=== PATIENT | male | born 1960 | race African-American/Black ===

== ENCOUNTER 2018-06-07 17:51 | Inpatient (IN) | payer MEDICAID ==
[2018-06-07 19:12] LABS: Mean Corpuscular HGB Conc 31 % (32-34); Mean Corpuscular Volume 71 fl (84-94); Platelet Count 352 K/mm3 (140-440); Red Blood Count 5.17 M/mm3 (3.65-5.03); Red Cell Distribution Width 18.1 % (13.2-15.2)
[2018-06-07 19:23] LABS: INR 0.93 (0.87-1.13)
[2018-06-07 19:24] LABS: Partial Thromboplastin Time 33.7 Sec. (24.2-36.6)
[2018-06-07 19:30] LABS: Hematocrit 36.7 % (35.5-45.6); Hemoglobin 11.2 gm/dl (11.8-15.2)
[2018-06-07 19:31] LABS: Alanine Aminotransferase 18 units/L (7-56); Albumin 4.1 g/dL (3.9-5); BUN/Creatinine Ratio 11; Blood Urea Nitrogen 10 mg/dL (9-20); Calcium 9.3 mg/dL (8.4-10.2); Hemolysis Index 7
[2018-06-07 19:36] LABS: Amphetamine Screen,Urine PRESUMPTIVE NEGATIVE; Benzodiazepines Screen,Urine PRESUMPTIVE NEGATIVE; Cannabinoid Screen,Urine PRESUMPTIVE NEGATIVE; Cocaine Screen,Urine PRESUMPTIVE NEGATIVE; Methadone Screen,Urine PRESUMPTIVE NEGATIVE; Opiate Screen,Urine PRESUMPTIVE NEGATIVE
[2018-06-07 19:43] LABS: Bacteria,Urine 1+ /HPF (Negative); Bilirubin,Urine NEG (Negative); Blood,Urine NEG (Negative); Color,Urine Straw (Yellow); Protein,Urine <15 mg/dL mg/dL (Negative); Urobilinogen,Urine < 2.0 mg/dL (<2.0); WBC,Urine < 1.0 /HPF (0.0-6.0)
[2018-06-07] MEDS ORDERED: NACL 0.9% 1000 ML 1,000 ML IV ONE (20:37)
[2018-06-07] MEDS ORDERED: ATROPINE IV ONE (20:37)
[2018-06-07] MEDS ORDERED: CALCIUM GLUCONATE 1,000 MG in NACL 0.9% 100 ML IV ONE (20:37)
--- NOTE | 2018-06-07 20:39 | Emergency Department Report ---
ED General Adult HPI - General Chief complaint: Medical Clearance Stated complaint: ALCOHOL DETOX Time Seen by Provider: 06/07/18 20:27 Source: EMS (ems notes not available at time of chart dictation), RN notes reviewed Mode of arrival: Stretcher Limitations: Altered Mental Status, Physical Limitation - History of Present Illness Initial comments: This is a 57-year-old gentleman. The patient is not known to this provider previously. His past medical history includes type 2 diabetes, depression, left-sided hemiplegia, dysphagia, BPH, chronic pain, constipation, history of falling, high cholesterol, osteoarthritis, gastroesophageal reflux disease. The patient also has a distant history of cervical cord compression, status post cervical decompression, laminectomy and fusion. The patient is reportedly sensitive to this emergency room by his prison for medical clearance after reported alcohol consumption. The patient has no complaints at this time. He is requesting to eat. He makes no complaint of headache, neck pain, test pain, abdominal pain, cough, shortness of breath. His prison facility primary care physician is Dr. Angel Beal. There is no documented history of trauma this far. Apparently, patient and his group her out on a day trip, and he is reported to have consumed wine. Initially, in the emergency room, patient found to be quite intoxicated, bradycardic, with a heart rate of 48 bpm, initially hypotensive, with a blood pressure in the 90s. Patient medicated empirically with atropine, fluids, sodiu m bicarbonate and calcium gluconate. These aforementioned interventions improve the patient's bradycardia and hypotension. Screening laboratory studies were unremarkable otherwise, noncontrast CT scan of brain was negative, however, an x-ray of the chest suggested a right lower lobe consolidation. Given the aforementioned, concern about aspiration pneumonia, pneumonitis. Given that patient has had documented bradycardia, hypotension, now resolved, with his presumed right lower lobe pneumonia, aspiration, is my opinion that the patient is not medically suitable for discharge at this point i n time to go back to the prison. I believe he will benefit from observation. Nursing team attempted to call the reported prison 6 times to clarify when patient's last known metoprolol ingestion took place, however, nobody answered the phone when we called. Given that hypotension has resolved, given at serum toxicology is otherwise unremarkable with the exception of elevated blood alcohol level, and given that bradycardia has also resolved, it is my opinion that the [facility] does not need to be emergently consulted by the emergency room. The case was presented to the Hospital physician, Dr. Weir, who has accepted the patient to the medical service. The patient is intoxicated, and therefore has difficulty describing exacerbating or relieving factors, aggravation, or qualitative nature of his symptoms. -: unknown Radiation: other Quality: other Consistency: other Improves with: other Worsens with: other - Related Data Allergies Allergy/AdvReac Type Severity Reaction Status Date / Time No Known Allergies Allergy Unverified 06/07/18 18:23 ED Review of Systems ROS: Stated complaint: ALCOHOL DETOX Other details as noted in HPI Comment: Unobtainable due to pts medical conditions Constitutional: malaise, weakness Neurological: weakness (chronic weakness) ED Past Medical Hx - Past Medical History Previous Medical History?: Yes Hx Hypertension: Yes Hx CVA: Yes Hx Psychiatric Treatment: Yes (depression, Anxiety, and ETOH abuse) Hx Dementia: Yes - Surgical History Past Surgical History?: Yes Additional Surgical History: Cervical fusion. - Social History Smoking Status: Unknown if ever smoked Substance Use Type: Alcohol ED Physical Exam - General Limitations: Physical Limitation General appearance: alert, appears intoxicated - Head Head exam: Present: atraumatic, normocephalic - Eye Eye exam: Present: normal appearance, EOMI - ENT ENT exam: Present: normal exam, normal orophraynx, mucous membranes moist - Neck Neck exam: Present: normal inspection, full ROM - Respiratory Respiratory exam: Present: decreased breath sounds. Absent: wheezes, rales, rh onchi - Cardiovascular Cardiovascular Exam: Present: normal rhythm, bradycardia, normal heart sounds. Absent: tachycardia, irregular rhythm, systolic murmur, diastolic murmur, rubs, gallop - GI/Abdominal GI/Abdominal exam: Present: soft. Absent: distended, tenderness, guarding, rebound, rigid, pulsatile mass - Rectal Rectal exam: Present: deferred - Extremities Exam Extremities exam: Present: normal inspection, full ROM, other (2+ pulses noted in the bilateral upper, lower extremities. Compartments soft. No long bony tenderness. The pelvis is stable.). Absent: pedal edema, joint swelling, calf tenderness - Back Exam Back exam: Present: normal inspection, full ROM. Absent: tenderness, CVA t enderness (R), paraspinal tenderness - Neurological Exam Neurological exam: Present: alert (alert to name. Follows commands. Patient is intoxicated), other (there is no facial droop. The tongue is midline. Moving 4 extremities spontaneously.) - Psychiatric Psychiatric exam: Present: anxious. Absent: homicidal ideation, suicidal ideation - Skin Skin exam: Present: warm, dry, intact, normal color. Absent: rash ED Course Vital Signs 06/07/18 06/07/18 06/07/18 18:11 18:49 19:00 Temperature 97.8 F Pulse Rate 57 L 48 L 49 L Respiratory 14 13 13 Rate Blood Pressure 112/64 117/62 Blood Pressure [Left] O2 Sat by Pulse 100 99 100 Oximetry 06/07/18 06/07/18 06/07/18 20:15 20:44 21:38 Temperature Pulse Rate 49 L 52 L 74 Respiratory 13 16 13 Rate Blood Pressure Blood Pressure 114/54 104/58 120/70 [Left] O2 Sat by Pulse 100 99 99 Oximetry 06/07/18 06/07/18 21:44 22:36 Temperature Pulse Rate 75 70 Respiratory 14 14 Rate Blood Pressure Blood Pressure 110/66 107/60 [Left] O2 Sat by Pulse 98 98 Oximetry ED Medical Decision Making - Lab Data Result diagrams: 06/07/18 18:48 06/07/18 18:48 Vital Signs 06/07/18 06/07/18 06/07/18 18:11 18:49 19:00 Temperature 97.8 F Pulse Rate 57 L 48 L 49 L Respiratory 14 13 13 Rate Blood Pressure 112/64 117/62 Blood Pressure [Left] O2 Sat by Pulse 100 99 100 Oximetry 06/07/18 06/07/18 06/07/18 20:15 20:44 21:38 Temperature Pulse Rate 49 L 52 L 74 Respiratory 13 16 13 Rate Blood Pressure Blood Pressure 114/54 104/58 120/70 [Left] O2 Sat by Pulse 100 99 99 Oximetry 06/07/18 06/07/18 21:44 22:36 Temperature Pulse Rate 75 70 Respiratory 14 14 Rate Blood Pressure Blood Pressure 110/66 107/60 [Left] O2 Sat by Pulse 98 98 Oximetry Lab Results 06/07/18 06/07/18 06/07/18 Range/Units 18:48 18:48 18:48 WBC 7.5 (4.5-11.0) K/mm3 RBC 5.17 H (3.65-5.03) M/mm3 Hgb 11.2 L (11.8-15.2) gm/dl Hct 36.7 (35.5-45.6) % MCV 71 L (84-94) fl MCH 22 L (28-32) pg MCHC 31 L (32-34) % RDW 18.1 H (13.2-15.2) % Plt Count 352 (140-440) K/mm3 PT 13.0 (12.2-14.9) Sec. INR 0.93 (0.87-1.13) APTT 33.7 (24.2-36.6) Sec. Sodium 137 (137-145) mmol/L Potassium 4.3 (3.6-5.0) mmol/L Chloride 99.0 (98-107) mmol/L Carbon Dioxide 24 (22-30) mmol/L Anion Gap 18 mmol/L BUN 10 (9-20) mg/dL Creatinine 0.9 (0.8-1.5) mg/dL Estimated GFR > 60 ml/min BUN/Creatinine Ratio 11 % Glucose 165 H (75-100) mg/dL Calcium 9.3 (8.4-10.2) mg/dL Magnesium 2.10 (1.7-2.3) mg/dL Total Bilirubin 0.30 (0.1-1.2) mg/dL AST 22 (5-40) units/L ALT 18 (7-56) units/L Alkaline Phosphatase 104 (35-129) units/L Total Creatine Kinase 205 H (55-170) units/L Total Protein 7.7 (6.3-8.2) g/dL Albumin 4.1 (3.9-5) g/dL Albumin/Globulin Ratio 1.1 % Urine Color (Yellow) Urine Turbidity (Clear) Urine pH (5.0-7.0) Ur Specific [place] (1.003-1.030) Urine Protein (Negative) mg/dL Urine Glucose (UA) (Negative) mg/dL Urine Ketones (Negative) mg/dL Urine Blood (Negative) Urine Nitrite (Negative) Urine Bilirubin (Negative) Urine Urobilinogen (<2.0) mg/dL Ur Leukocyte Esterase (Negative) Urine WBC (Auto) (0.0-6.0) /HPF Urine RBC (Auto) (0.0-6.0) /HPF Urine Bacteria (Auto) (Negative) /HPF Salicylates (2.8-20.0) mg/dL Urine Opiates Screen Urine Methadone Screen Acetaminophen (10.0-30.0) ug/mL Ur Barbiturates Screen Ur Phencyclidine Scrn Ur Amphetamines Screen U Benzodiazepines Scrn Urine Cocaine Screen U Marijuana (THC) Screen Drugs of Abuse Note Plasma/Serum Alcohol (0-0.07) % 06/07/18 06/07/18 06/07/18 Range/Units 18:48 18:48 18:48 WBC (4.5-11.0) K/mm3 RBC (3.65-5.03) M/mm3 Hgb (11.8-15.2) gm/dl Hct (35.5-45.6) % MCV (84-94) fl MCH (28-32) pg MCHC (32-34) % RDW (13.2-15.2) % Plt Count (140-440) K/mm3 PT (12.2-14.9) Sec. INR (0.87-1.13) APTT (24.2-36.6) Sec. Sodium (137-145) mmol/L Potassium (3.6-5.0) mmol/L Chloride (98-107) mmol/L Carbon Dioxide (22-30) mmol/L Anion Gap mmol/L BUN (9-20) mg/dL Creatinine (0.8-1.5) mg/dL Estimated GFR ml/min BUN/Creatinine Ratio % Glucose (75-100) mg/dL Calcium (8.4-10.2) mg/dL Magnesium (1.7-2.3) mg/dL Total Bilirubin (0.1-1.2) mg/dL AST (5-40) units/L ALT (7-56) units/L Alkaline Phosphatase (35-129) units/L Total Creatine Kinase (55-170) units/L Total Protein (6.3-8.2) g/dL Albumin (3.9-5) g/dL Albumin/Globulin Ratio % Urine Color (Yellow) Urine Turbidity (Clear) Urine pH (5.0-7.0) Ur Specific [place] (1.003-1.030) Urine Protein (Negative) mg/dL Urine Glucose (UA) (Negative) mg/dL Urine Ketones (Negative) mg/dL Urine Blood (Negative) Urine Nitrite (Negative) Urine Bilirubin (Negative) Urine Urobilinogen (<2.0) mg/dL Ur Leukocyte Esterase (Negative) Urine WBC (Auto) (0.0-6.0) /HPF Urine RBC (Auto) (0.0-6.0) /HPF Urine Bacteria (Auto) (Negative) /HPF Salicylates < 0.3 L (2.8-20.0) mg/dL Urine Opiates Screen Urine Methadone Screen Acetaminophen < 5.0 L (10.0-30.0) ug/mL Ur Barbiturates Screen Ur Phencyclidine Scrn Ur Amphetamines Screen U Benzodiazepines Scrn Urine Cocaine Screen U Marijuana (THC) Screen Drugs of Abuse Note Plasma/Serum Alcohol 0.24 H (0-0.07) % 06/07/18 06/07/18 Range/Units 19:04 19:04 WBC (4.5-11.0) K/mm3 RBC (3.65-5.03) M/mm3 Hgb (11.8-15.2) gm/dl Hct (35.5-45.6) % MCV (84-94) fl MCH (28-32) pg MCHC (32-34) % RDW (13.2-15.2) % Plt Count (140-440) K/mm3 PT (12.2-14.9) Sec. INR (0.87-1.13) APTT (24.2-36.6) Sec. Sodium (137-145) mmol/L Potassium (3.6-5.0) mmol/L Chloride (98-107) mmol/L Carbon Dioxide (22-30) mmol/L Anion Gap mmol/L BUN (9-20) mg/dL Creatinine (0.8-1.5) mg/dL Estimated GFR ml/min BUN/Creatinine Ratio % Glucose (75-100) mg/dL Calcium (8.4-10.2) mg/dL Magnesium (1.7-2.3) mg/dL Total Bilirubin (0.1-1.2) mg/dL AST (5-40) units/L ALT (7-56) units/L Alkaline Phosphatase (35-129) units/L Total Creatine Kinase (55-170) units/L Total Protein (6.3-8.2) g/dL Albumin (3.9-5) g/dL Albumin/Globulin Ratio % Urine Color Straw (Yellow) Urine Turbidity Clear (Clear) Urine pH 6.0 (5.0-7.0) Ur Specific [place] 1.003 (1.003-1.030) Urine Protein <15 mg/dl (Negative) mg/dL Urine Glucose (UA) Neg (Negative) mg/dL Urine Ketones Neg (Negative) mg/dL Urine Blood Neg (Negative) Urine Nitrite Neg (Negative) Urine Bilirubin Neg (Negative) Urine Urobilinogen < 2.0 (<2.0) mg/dL Ur Leukocyte Esterase Neg (Negative) Urine WBC (Auto) < 1.0 (0.0-6.0) /HPF Urine RBC (Auto) 1.0 (0.0-6.0) /HPF Urine Bacteria (Auto) 1+ (Negative) /HPF Salicylates (2.8-20.0) mg/dL Urine Opiates Screen Presumptive negative Urine Methadone Screen Presumptive negative Acetaminophen (10.0-30.0) ug/mL Ur Barbiturates Screen Presumptive negative Ur Phencyclidine Scrn Presumptive negative Ur Amphetamines Screen Presumptive negative U Benzodiazepines Scrn Presumptive negative Urine Cocaine Screen Presumptive negative U Marijuana (THC) Screen Presumptive negative Drugs of Abuse Note Disclamer Plasma/Serum Alcohol (0-0.07) % - EKG Data -: EKG Interpreted by Or Rate: bradycardia - EKG Data When compared to previous EKG there are: previous EKG unavailable 06/07/18 23:14 EKG shows bradycardia, 48 bpm, borderline left axis deviation, premature ventricular contraction, low voltage, right bundle branch block, T-wave inversions in inferior leads, abnormal EKG, not having chest pain, this is not consistent with ST elevation myocardial infarction. There is currently no prior EKG available for comparison - Radiology Data Radiology results: report reviewed, image reviewed Print Report Referring Physician: CHERI SEARS Patient Name: RYAN PHILLIPS Date of : 1960 Sex: Male Report Date: 2018-06-07 Report Status: Finalized Findings [facility] [address] [place] [address] XRay Report Signed Patient: RYAN PHILLIPS MR#: [id number] : 1960 Acct:[id number] Age/Sex: 57 / M ADM Date: 06/07/18 Loc: ED Attending Dr: Ordering Physician: CHERI SEARS MD Date of Service: 06/07/18 Procedure(s): XR chest 1V ap Accession Number(s): [id number] cc: CHERI SEARS MD Fluoro Time In Minutes: PROCEDURE: XR CHEST 1V AP TECHNIQUE: Frontal portable view of the chest HISTORY: weak hypotensive bradycardic COMPARISONS: None FINDINGS: There is elevation the right hemidiaphragm. There is pulmonary consolidation in the right lung base. Atelectasis versus infiltrate. There is no evidence of pneumothorax and no definite evidence of pleural fluid collection. The cardiac silhouette is enlarged. The thoracic aorta is unremarkable. The bony structures are notable for degenerative change of the shoulder joints bilaterally and retained hardware in the cervical spine. IMPRESSION: 1. Elevation of the right hemidiaphragm with the appearance of atelectasis or infiltrate right lung base. 2. Enlarged cardiac silhouette. 3. Degenerative change shoulder joints bilaterally and retained hardware cervical spine. If further imaging is required, CT chest may be helpful. This document is electronically signed by Debby Renteria MD., June 07 2018 10:26:09 PM ET Transcribed By: ED Dictated By: DEBBY RENTERIA MD Electronically Authenticated By: DEBBY RENTERIA MD Signed Date/Time: 06/07/182226 DD/ 36 TD/TT: 06/07/182123 Critical Care Time: Yes Critical care time in (mins) excluding proc time.: 35 Critical care attestation.: If time is entered above; I have spent that time in minutes in the direct care of this critically ill patient, excluding procedure time. ED Disposition Clinical Impression: Bradycardia, Alcohol intoxication, Aspiration into airway, Debility Disposition: OP ADMIT IP TO THIS HOSP Is pt being admited?: Yes Does the pt Need Aspirin: Yes Condition: Fair Referrals: ANGEL BEAL MD [Primary Care Provider] - 3-5 Days
--- NOTE | 2018-06-07 21:23 | Cat Scan Report ---
PROCEDURE: CT HEAD/BRAIN WO CON HISTORY: etoh weak bradycardic FINDINGS: Unenhanced CT of the brain was performed and demonstrates no acute intracranial hemorrhage, extra-axial fluid collection, midline shift or mass effect. The ventricles and basal cisterns are no t effaced. The mastoid air cells and middle ears appear clear. There is complete opacification of the right maxi llary sinus. There is partial opacification of the left maxillary sinus. There are a left maxillary p olyp versus mucous retention cyst. There is an air-fluid level in the right frontal sinus consistent with sinusitis. There is partial opacification of the ethmoid air cells and sphenoid sinuses. IMPRESSION: No acute intracranial hemorrhage Sinus disease including air-fluid level in right frontal sinus consistent with acute sinusitis This document is electronically signed by Saul Maciel MD., June 07 2018 09:22:19 PM ET
[2018-06-07] MEDS: D5/0.45NS 1,000 ML IV SCH (21:45)
--- NOTE | 2018-06-07 22:27 | XRay Report ---
PROCEDURE: XR CHEST 1V AP TECHNIQUE: Frontal portable view of the chest HISTORY: weak hypotensive bradycardic COMPARISONS: None FINDINGS: There is elevation the right hemidiaphragm. There is pulmonary consolidation in the right lung base. Atelectasis versus infiltrate. There is no evidence of pneumothorax and no definite evidence of pleural fluid collection. The cardiac silhouette is enlarged. The thoracic aorta is unremarkable. The bony structures are notable for degenerative change of the shoulder joints bilaterally and retain ed hardware in the cervical spine. IMPRESSION: 1. Elevation of the right hemidiaphragm with the appearance of atelectasis or infiltrate right lung b ase. 2. Enlarged cardiac silhouette. 3. Degenerative change shoulder joints bilaterally and retained hardware cervical spine. If further imaging is required, CT chest may be helpful. This document is electronically signed by Debby Renteria MD., June 07 2018 10:26:09 PM ET
[2018-06-07] MEDS ORDERED: LEVAQUIN 750MG/150ML 750 MG/150 ML BAG IV ONE (22:58)
[2018-06-07] MEDS ORDERED: BABY ASPIRIN PO ONE (23:15)
[2018-06-07] MEDS ORDERED: NORCO 5/325 PO PRN (23:36)
[2018-06-07] MEDS ORDERED: ZOFRAN IV PRN (23:36)
[2018-06-07] MEDS ORDERED: SODIUM CHLORIDE FLUSH SYRINGE 10 ML IV PRN (23:36)
[2018-06-07] MEDS ORDERED: TYLENOL PO PRN (23:36)
[2018-06-07] MEDS ORDERED: D50W (25GM) Syringe IV PRN (23:38)
[2018-06-08] MEDS ORDERED: BABY ASPIRIN ONE (01:17)
--- NOTE | 2018-06-08 01:24 | History and Physical Report ---
History of Present Illness Date of examination: 06/07/18 Date of admission: 06/07/18 23:36 Chief complaint: Medical clearance per report History of present illness: Patient is a 57 year old male with history of diabetes mellitus type 2 and stroke, a resident of assisted facility who was brought to the ED for medical clearance after he was found to have consumed alcohol. Patient was a poor historian and he stated that he did not know why he was brought to the ER. However he stated that they went to the mall today and he bought them to smoke but is of wine which she consumed. Nevertheless, he denies history of alcohol abuse and he stated that he had not drank alcohol for a while until today. He admits to chills without fever. He denies chest pain, shortness of breath, palpitation, diaphoresis, leg swelling, cough, orthopnea, PND, sore throat, runn y nose or congestion. No headaches, nausea, vomiting, lightheadedness, falls, syncope or loss of consciousness. No abdominal pain, constipation, diarrhea, dysuria or frequency. In the ED, his heart rate was noted to be low at 48 and his systolic blood pressure was in the 90s. Past History Past Medical History: diabetes, hypertension, stroke, other (cervical cord compression anxiety and depression) Past Surgical History: Other (cervical decompression, laminectomy and fusion.) Social history: other (he denies alcohol abuse, but drinks alcohol occasionally. He denies tobacco or illicit drug use) Family history: other (reviewed and noncontributory) Medications and Allergies Allergies Allergy/AdvReac Type Severity Reaction Status Date / Time No Known Allergies Allergy Unverified 06/07/18 18:23 Active Meds: Active Medications Acetaminophen (Tylenol) 650 mg PO Q4H PRN PRN Reason: Pain MILD(1-3)/Fever >100.5/INIGUEZ Acetaminophen/Hydrocodone Bitart ([place] 5/325) 1 each PO Q6H PRN PRN Reason: Pain, Moderate (4-6) Dextrose (D50w (25gm) Syringe) 50 ml IV PRN PRN PRN Reason: Hypoglycemia Enoxaparin Sodium (Lovenox) 40 mg SUB-Q QDAY AUREA Dextrose/Sodium Chloride (D5/0.45ns) 1,000 mls @ 0 mls/hr IV DIRECT AUREA Last Admin: 06/07/18 21:45 Dose: 999 mls/hr Documented by: Levofloxacin/Dextrose (Levaquin 750mg/150ml) 750 mg in 150 mls @ 100 mls/hr IV Q24HR AUREA; Protocol Insulin Glargine (Lantus) 10 units SUB-Q QHS AUREA Insulin Human Lispro (Humalog) 0 unit SUB-Q ACHS AUREA; Protocol Ondansetron HCl (Zofran) 4 mg IV Q8H PRN PRN Reason: Nausea And Vomiting Sodium Chloride (Sodium Chloride Flush Syringe 10 Ml) 10 ml IV PRN PRN PRN Reason: LINE FLUSH Sodium Chloride (Sodium Chloride Flush Syringe 10 Ml) 10 ml IV BID AUREA Review of Systems All systems: negative (except as documented in the HPI, all other systems were reviewed and negative) Exam - Constitutional Vitals: Temp Pulse Resp BP Pulse Ox 97.8 F 62 13 111/65 99 06/07/18 18:11 06/08/18 00:52 06/08/18 00:52 06/08/18 00:52 06/08/18 00:52 General appearance: Present: no acute distress, obese - EENT Eyes: Present: PERRL, EOM intact ENT: hearing intact, clear oral mucosa - Neck Neck: Present: supple, normal ROM - Respiratory Respiratory effort: normal Respiratory: bilateral: CTA - Cardiovascular Rhythm: regular Heart Sounds: Present: S1 & S2. Absent: rub, click - Extremities Extremities: No edema Peripheral Pulses: within normal limits - Abdominal General gastrointestinal: Present: soft, non-tender, non-distended, normal bowel sounds Male genitourinary: Present: deferred - Integumentary Integumentary: Present: clear, warm, dry - Musculoskeletal Musculoskeletal: left sided weakness - Psychiatric Psychiatric: appropriate mood/affect, intact judgment & insight - Neurologic Neurologic: moves all extremities Results - Labs CBC & Chem 7: 06/07/18 18:48 06/07/18 18:48 Labs: Laboratory Last Values WBC 7.5 K/mm3 (4.5-11.0) 06/07/18 18:48 RBC 5.17 M/mm3 (3.65-5.03) H 06/07/18 18:48 Hgb 11.2 gm/dl (11.8-15.2) L 06/07/18 18:48 Hct 36.7 % (35.5-45.6) 06/07/18 18:48 MCV 71 fl (84-94) L 06/07/18 18:48 MCH 22 pg (28-32) L 06/07/18 18:48 MCHC 31 % (32-34) L 06/07/18 18:48 RDW 18.1 % (13.2-15.2) H 06/07/18 18:48 Plt Count 352 K/mm3 (140-440) 06/07/18 18:48 PT 13.0 Sec. (12.2-14.9) 06/07/18 18:48 INR 0.93 (0.87-1.13) 06/07/18 18:48 APTT 33.7 Sec. (24.2-36.6) 06/07/18 18:48 Sodium 137 mmol/L (137-145) 06/07/18 18:48 Potassium 4.3 mmol/L (3.6-5.0) 06/07/18 18:48 Chloride 99.0 mmol/L (98-107) 06/07/18 18:48 Carbon Dioxide 24 mmol/L (22-30) 06/07/18 18:48 Anion Gap 18 mmol/L 06/07/18 18:48 BUN 10 mg/dL (9-20) 06/07/18 18:48 Creatinine 0.9 mg/dL (0.8-1.5) 06/07/18 18:48 Estimated GFR > 60 ml/min 06/07/18 18:48 BUN/Creatinine Ratio 11 % 06/07/18 18:48 Glucose 165 mg/dL (75-100) H 06/07/18 18:48 Calcium 9.3 mg/dL (8.4-10.2) 06/07/18 18:48 Magnesium 2.10 mg/dL (1.7-2.3) 06/07/18 18:48 Total Bilirubin 0.30 mg/dL (0.1-1.2) 06/07/18 18:48 AST 22 units/L (5-40) 06/07/18 18:48 ALT 18 units/L (7-56) 06/07/18 18:48 Alkaline Phosphatase 104 units/L (35-129) 06/07/18 18:48 Total Creatine Kinase 205 units/L (55-170) H 06/07/18 18:48 Total Protein 7.7 g/dL (6.3-8.2) 06/07/18 18:48 Albumin 4.1 g/dL (3.9-5) 06/07/18 18:48 Albumin/Globulin Ratio 1.1 % 06/07/18 18:48 Urine Color Straw (Yellow) 06/07/18 19:04 Urine Turbidity Clear (Clear) 06/07/18 19:04 Urine pH 6.0 (5.0-7.0) 06/07/18 19:04 Ur Specific [place] 1.003 (1.003-1.030) 06/07/18 19:04 Urine Protein <15 mg/dl mg/dL (Negative) 06/07/18 19:04 Urine Glucose (UA) Neg mg/dL (Negative) 06/07/18 19:04 Urine Ketones Neg mg/dL (Negative) 06/07/18 19:04 Urine Blood Neg (Negative) 06/07/18 19:04 Urine Nitrite Neg (Negative) 06/07/18 19:04 Urine Bilirubin Neg (Negative) 06/07/18 19:04 Urine Urobilinogen < 2.0 mg/dL (<2.0) 06/07/18 19:04 Ur Leukocyte Esterase Neg (Negative) 06/07/18 19:04 Urine WBC (Auto) < 1.0 /HPF (0.0-6.0) 06/07/18 19:04 Urine RBC (Auto) 1.0 /HPF (0.0-6.0) 06/07/18 19:04 Urine Bacteria (Auto) 1+ /HPF (Negative) 06/07/18 19:04 Salicylates < 0.3 mg/dL (2.8-20.0) L 06/07/18 18:48 Urine Opiates Screen Presumptive negative 06/07/18 19:04 Urine Methadone Screen Presumptive negative 06/07/18 19:04 Acetaminophen < 5.0 ug/mL (10.0-30.0) L 06/07/18 18:48 Ur Barbiturates Screen Presumptive negative 06/07/18 19:04 Ur Phencyclidine Scrn Presumptive negative 06/07/18 19:04 Ur Amphetamines Screen Presumptive negative 06/07/18 19:04 U Benzodiazepines Scrn Presumptive negative 06/07/18 19:04 Urine Cocaine Screen Presumptive negative 06/07/18 19:04 U Marijuana (THC) Screen Presumptive negative 06/07/18 19:04 Drugs of Abuse Note Disclamer 06/07/18 19:04 Plasma/Serum Alcohol 0.24 % (0-0.07) H 06/07/18 18:48 Assessment and Plan Assessment and plan: Possible pneumonia -Chest x-ray reported as possible infiltrate versus atelectasis -On IV antibiotic with levofloxacin -Blood cultures pending Sinus bradycardia -HR currently improved, will monitor Hypotension -BP currently improved, will monitor DM2 with hyperglycemia -On Lantus and SSI Alcohol intoxication -Monitor clinically Anxiety and depression -Resume home medications when available History of stroke, stable Disposition: For possible discharge in 2-3 days Time spent: 38 minutes
[2018-06-08] MEDS ORDERED: LEVAQUIN 750MG/150ML 750 MG/150 ML BAG IV ONE (03:00)
[2018-06-08] MEDS: D5/0.45NS 1,000 ML IV SCH (03:04)
[2018-06-08] MEDS ORDERED: NACL 0.9% 1000 ML 1,000 ML IV ONE (03:14)
--- NOTE | 2018-06-08 09:50 | Event Note ---
Date: 06/08/18 Patient is resident of SNF. They went to [facility] as a group, he drank some wine passed out therefore brought to ED. I have seen and examined him. Will obtain Echo, carotid dopplers.
[2018-06-08] MEDS: HumaLOG SUB-Q SCH ×4 (11:34→21:33)
[2018-06-08] MEDS: NACL 0.9% 1000 ML 1,000 ML IV SCH ×2 (11:35→21:32)
[2018-06-08] MEDS: LEVAQUIN 750MG/150ML 750 MG/150 ML BAG IV SCH (11:39)
[2018-06-08] MEDS: LOVENOX SUB-Q SCH (11:44)
[2018-06-08] MEDS: SODIUM CHLORIDE FLUSH SYRINGE 10 ML IV SCH ×2 (11:46→21:36)
[2018-06-08] MEDS: LANTUS SUB-Q SCH (21:32)
[2018-06-08] MEDS ORDERED: REMERON PO SCH (23:24)
[2018-06-09] MEDS: NACL 0.9% 1000 ML 1,000 ML IV SCH (05:18)
[2018-06-09] MEDS: HumaLOG SUB-Q SCH ×4 (07:55→22:18)
[2018-06-09] MEDS: LEVAQUIN 750MG/150ML 750 MG/150 ML BAG IV SCH (09:04)
[2018-06-09] MEDS: LOVENOX SUB-Q SCH (09:05)
[2018-06-09] MEDS: SODIUM CHLORIDE FLUSH SYRINGE 10 ML IV SCH ×2 (09:05→22:14)
[2018-06-09] MEDS: VOLTAREN DR PO SCH ×3 (09:05→22:11)
--- NOTE | 2018-06-09 16:19 | Progress Note ---
Assessment and Plan Assessment and plan: Syncope Admitted to Telemetry Echocardiogram done report pending neurochecks Alcohol intoxication serum alcohol 0.24 history of stroke with left sided weakness resident at [facility] Full code status Likely dc to SNF tomorrow if echo unremarkable. History Interval history: Patient presented with syncope after drinking Hospitalist Physical - Physical exam Narrative exam: Gen: Not in acute distress, lying in bed, obese HEENT: Normocephalic, atraumatic Heart: S1 and S2 reg, no murmurs, rubs or gallop Lungs: Clear to auscultation bilaterally,no wheezing Abd: soft, non tender, non distended, normal BS Ext: No edema, no clubbing, no cyanosis Neuro: AAO x 3, left sided weakness from previous stroke, Psych: normal mood - Constitutional Vitals: Temp Pulse Resp BP Pulse Ox 97.5 F L 52 L 18 153/59 98 06/09/18 06:07 06/09/18 07:28 06/09/18 06:07 06/09/18 06:07 06/09/18 07:28 General appearance: Present: no acute distress, obese Results - Labs CBC & Chem 7: 06/07/18 18:48 06/07/18 18:48 Labs: Laboratory Last Values WBC 7.5 K/mm3 (4.5-11.0) 06/07/18 18:48 RBC 5.17 M/mm3 (3.65-5.03) H 06/07/18 18:48 Hgb 11.2 gm/dl (11.8-15.2) L 06/07/18 18:48 Hct 36.7 % (35.5-45.6) 06/07/18 18:48 MCV 71 fl (84-94) L 06/07/18 18:48 MCH 22 pg (28-32) L 06/07/18 18:48 MCHC 31 % (32-34) L 06/07/18 18:48 RDW 18.1 % (13.2-15.2) H 06/07/18 18:48 Plt Count 352 K/mm3 (140-440) 06/07/18 18:48 PT 13.0 Sec. (12.2-14.9) 06/07/18 18:48 INR 0.93 (0.87-1.13) 06/07/18 18:48 APTT 33.7 Sec. (24.2-36.6) 06/07/18 18:48 Sodium 137 mmol/L (137-145) 06/07/18 18:48 Potassium 4.3 mmol/L (3.6-5.0) 06/07/18 18:48 Chloride 99.0 mmol/L (98-107) 06/07/18 18:48 Carbon Dioxide 24 mmol/L (22-30) 06/07/18 18:48 Anion Gap 18 mmol/L 06/07/18 18:48 BUN 10 mg/dL (9-20) 06/07/18 18:48 Creatinine 0.9 mg/dL (0.8-1.5) 06/07/18 18:48 Estimated GFR > 60 ml/min 06/07/18 18:48 BUN/Creatinine Ratio 11 % 06/07/18 18:48 Glucose 165 mg/dL (75-100) H 06/07/18 18:48 POC Glucose 104 (70-105) 06/09/18 07:30 Lactic Acid 1.70 mmol/L (0.7-2.0) 06/08/18 09:48 Calcium 9.3 mg/dL (8.4-10.2) 06/07/18 18:48 Magnesium 2.10 mg/dL (1.7-2.3) 06/07/18 18:48 Total Bilirubin 0.30 mg/dL (0.1-1.2) 06/07/18 18:48 AST 22 units/L (5-40) 06/07/18 18:48 ALT 18 units/L (7-56) 06/07/18 18:48 Alkaline Phosphatase 104 units/L (35-129) 06/07/18 18:48 Total Creatine Kinase 205 units/L (55-170) H 06/07/18 18:48 Total Protein 7.7 g/dL (6.3-8.2) 06/07/18 18:48 Albumin 4.1 g/dL (3.9-5) 06/07/18 18:48 Albumin/Globulin Ratio 1.1 % 06/07/18 18:48 Urine Color Straw (Yellow) 06/07/18 19:04 Urine Turbidity Clear (Clear) 06/07/18 19:04 Urine pH 6.0 (5.0-7.0) 06/07/18 19:04 Ur Specific [place] 1.003 (1.003-1.030) 06/07/18 19:04 Urine Protein <15 mg/dl mg/dL (Negative) 06/07/18 19:04 Urine Glucose (UA) Neg mg/dL (Negative) 06/07/18 19:04 Urine Ketones Neg mg/dL (Negative) 06/07/18 19:04 Urine Blood Neg (Negative) 06/07/18 19:04 Urine Nitrite Neg (Negative) 06/07/18 19:04 Urine Bilirubin Neg (Negative) 06/07/18 19:04 Urine Urobilinogen < 2.0 mg/dL (<2.0) 06/07/18 19:04 Ur Leukocyte Esterase Neg (Negative) 06/07/18 19:04 Urine WBC (Auto) < 1.0 /HPF (0.0-6.0) 06/07/18 19:04 Urine RBC (Auto) 1.0 /HPF (0.0-6.0) 06/07/18 19:04 Urine Bacteria (Auto) 1+ /HPF (Negative) 06/07/18 19:04 Salicylates < 0.3 mg/dL (2.8-20.0) L 06/07/18 18:48 Urine Opiates Screen Presumptive negative 06/07/18 19:04 Urine Methadone Screen Presumptive negative 06/07/18 19:04 Acetaminophen < 5.0 ug/mL (10.0-30.0) L 06/07/18 18:48 Ur Barbiturates Screen Presumptive negative 06/07/18 19:04 Ur Phencyclidine Scrn Presumptive negative 06/07/18 19:04 Ur Amphetamines Screen Presumptive negative 06/07/18 19:04 U Benzodiazepines Scrn Presumptive negative 06/07/18 19:04 Urine Cocaine Screen Presumptive negative 06/07/18 19:04 U Marijuana (THC) Screen Presumptive negative 06/07/18 19:04 Drugs of Abuse Note Disclamer 06/07/18 19:04 Plasma/Serum Alcohol 0.24 % (0-0.07) H 06/07/18 18:48 Active Medications - Current Medications Current Medications: Generic Name Dose Route Start Last Admin Trade Name Freq PRN Reason Stop Dose Admin Acetaminophen 650 mg 06/07/18 23:36 Tylenol PO Q4H PRN Pain MILD(1-3)/Fever >100.5/INIGUEZ Acetaminophen/Hydrocodone Bitart 1 each 06/07/18 23:36 06/08/18 21:32 [place] 5/325 PO 1 each Q6H PRN Administration Pain, Moderate (4-6) Dextrose 50 ml 06/07/18 23:38 D50w (25gm) Syringe IV PRN PRN Hypoglycemia Diclofenac Sodium 75 mg 06/08/18 23:45 06/09/18 09:[address] PO 75 mg BID AUREA Administration Enoxaparin Sodium 40 mg 06/08/18 10:00 06/09/18 09:05 Lovenox SUB-Q 40 mg QDAY [facility] Administration Insulin Glargine 10 units 06/08/18 22:00 06/08/18 21:32 Lantus SUB-Q 10 units QHS [facility] Administration Insulin Human Lispro 0 unit 06/08/18 07:30 06/09/18 12:31 Humalog SUB-Q Not Given [facility] Protocol Levofloxacin 750 mg 06/10/18 10:00 Levaquin PO DAILY [facility] Mirtazapine 15 mg 06/08/18 23:24 06/09/18 00:01 Remeron PO 15 mg QHS [facility] Administration Ondansetron HCl 4 mg 06/07/18 23:36 Zofran IV Q8H PRN Nausea And Vomiting Sodium Chloride 10 ml 06/07/18 23:36 Sodium Chloride Flush Syringe 10 Ml IV PRN PRN LINE FLUSH Sodium Chloride 10 ml 06/08/18 10:00 06/09/18 09:05 Sodium Chloride Flush Syringe 10 Ml IV 10 ml BID AUREA Administration
[2018-06-09] MEDS ORDERED: PYRIDOXINE HCL PO SCH (17:45)
[2018-06-09] MEDS: FLOMAX PO SCH (18:40)
[2018-06-09] MEDS: NEURONTIN PO SCH (20:27)
[2018-06-09] MEDS: VITAMIN B-1 PO SCH (20:28)
[2018-06-09] MEDS: PROTONIX PO SCH (20:28)
[2018-06-09] MEDS ORDERED: REMERON PO SCH (22:00)
[2018-06-09] MEDS ORDERED: VOLTAREN DR PO SCH (22:00)
[2018-06-09] MEDS ORDERED: LANTUS SUB-Q SCH (22:00)
[2018-06-09] MEDS: KEPPRA PO SCH (22:11)
[2018-06-09] MEDS: LANTUS SUB-Q SCH (22:19)
--- NOTE | 2018-06-09 22:32 | Vascular Lab Report ---
PROCEDURE: VL CAROTID DUPLEX BILAT TECHNIQUE: Duplex Doppler ultrasound of the common, internal and external carotid arteries and the v ertebral arteries was performed bilaterally. Salazar scale imaging, velocity spectral waveform analysis, and color flow Doppler were employed. HISTORY: syncope COMPARISONS: None . Note: Measurement of carotid stenosis is based on flow velocity values that correlate with the [place] Symptomatic Carotid Endarterectomy Trial (NASCET) based stenosis criteria using the internal carotid artery diameter as the denominator for stenosis calculation. FINDINGS: RIGHT carotid artery: Velocities: ICA PSV: 116 cm/sec ICA End diastolic: 30 cm/sec CCA PSV: 68 cm/sec IC/CC ratio: 1.7 Plaque/: No obvious plaque formation is noted. RIGHT vertebral artery: Not well visualized LEFT carotid artery: Velocities: ICA PSV: 84 cm/sec ICA End diastolic: 24 cm/sec CCA PSV: 74 cm/sec IC/CC ratio: 1.1 Plaque/: No obvious plaque formation is noted.. LEFT vertebral artery: Antegrade systolic and diastolic flow IMPRESSION: 1. RIGHT carotid: No hemodynamically significant (less than 50 percent) internal carotid artery dominique nosis. 2. LEFT carotid: No hemodynamically significant (less than 50 percent) internal carotid artery sten osis. 3. Vertebral arteries: Antegrade flow is noted in left vertebral artery. Right vertebral artery is not well-visualized and its patency cannot be confirmed.. This document is electronically signed by eBn Hernandez MD., June 09 2018 10:30:15 PM ET
[2018-06-10] MEDS: HumaLOG SUB-Q SCH ×3 (07:53→16:59)
[2018-06-10] MEDS: VITAMIN B-1 PO SCH (09:27)
[2018-06-10] MEDS: PROTONIX PO SCH (09:27)
[2018-06-10] MEDS: VOLTAREN DR PO SCH (09:27)
[2018-06-10] MEDS: NEURONTIN PO SCH (09:27)
[2018-06-10] MEDS: FLOMAX PO SCH (09:27)
[2018-06-10] MEDS: KEPPRA PO SCH (09:28)
[2018-06-10] MEDS: LOVENOX SUB-Q SCH (09:28)
[2018-06-10] MEDS: SODIUM CHLORIDE FLUSH SYRINGE 10 ML IV SCH (09:28)
[2018-06-10] MEDS ORDERED: LEVAQUIN PO SCH (10:00)
[2018-06-10] MEDS ORDERED: VITAMIN B-6 PO SCH (10:00)
[2018-06-10] MEDS ORDERED: NON-FORMULARY (Clonazepam [Klonopin] 1 MG) PO SCH (10:00)
[2018-06-10] MEDS ORDERED: CYMBALTA PO SCH (10:00)
[2018-06-10 12:59] VITALS: BP 127/63
--- NOTE | 2018-06-10 13:07 | Discharge Summary ---
Providers - Providers Date of Admission: 06/07/18 23:36 Date of discharge: 06/10/18 Attending physician: CHERI CARRERA 06/10/18 10:29 Consult to Mental Health [CONS] Routine Reason For Exam: Alcohol use Place consult to:: Psych Notified:: Phone number called:: [phone] Was contact made?: No Time called:: 11:41 Comment:: no answer Primary care physician: ANGEL BEAL Hospitalization Condition: Fair Hospital course: Patient is a 57 year old male with history of diabetes mellitus type 2, stroke, a resident of [facility]. He was brought to the ED for evaluation after he was found to have consumed alcohol and passd out. He was seen and evaluated in ED. Serum alcohol was high 0.24. CT head unremarkable. Chest X ray RLL infiltrate, likely pneumonia. he was admitted, placed on iv Antibiotics. Echo showed EF 55-60%. No more syncopal episode after admission. he was subsequently discharged back to facility on 06/10/18. Total time spent on discharge, 34 mins Disposition: DC/[place]-03 SNF [facility] - Discharge Diagnoses (1) Pneumonia Status: Acute Qualifiers: Laterality: right Lung location: lower lobe of lung (2) Alcohol intoxication Status: Acute (3) Syncope Status: Acute (4) Diabetes mellitus type 2 in obese Status: Acute (5) History of stroke Status: Acute (6) Bradycardia Status: Acute Core Measure Documentation - Palliative Care Palliative Care/ Comfort Measures: Not Applicable - Core Measures Any of the following diagnoses?: none Exam - Constitutional Vitals: Temp Pulse Resp BP Pulse Ox 98.5 F 63 22 127/63 96 06/10/18 11:57 06/10/18 11:57 06/10/18 11:57 06/10/18 11:57 06/10/18 11:57 Plan Activity: no restrictions Diet: low fat, low cholesterol, low salt Additional Instructions: 1.Follow up with Physician at rehab facility in 2-3 days. 2.Avoid alcohol Follow up with: ANGEL BEAL MD [Primary Care Provider] - 3-5 Days Prescriptions: levoFLOXacin [Levaquin] 750 mg PO QDAY 4 Days tablet
== END 2018-06-10 17:00 | DRG 194 ==
LOC: ED 17:51 → 3A 23:36
PROVIDERS: ADMIT Internal Medicine; ATTEND Internal Medicine
DX: J18.9 Pneumonia, unspecified organism (principal); E87.2 Acidosis; I69.354 Hemiplegia and hemiparesis following cerebral infarction affecting left non-dominant side; I95.9 Hypotension, unspecified; E11.65 Type 2 diabetes mellitus with hyperglycemia; F10.129 Alcohol abuse with intoxication, unspecified; R55 Syncope and collapse; R13.10 Dysphagia, unspecified; N40.0 Benign prostatic hyperplasia without lower urinary tract symptoms; G89.29 Other chronic pain; M19.90 Unspecified osteoarthritis, unspecified site; K21.9 Gastro-esophageal reflux disease without esophagitis; F41.9 Anxiety disorder, unspecified; F03.90 Unspecified dementia, unspecified severity, without behavioral disturbance, psychotic disturbance, mood disturbance, and anxiety; R00.1 Bradycardia, unspecified; F32.9 Major depressive disorder, single episode, unspecified; E66.9 Obesity, unspecified; Z68.34 Body mass index [BMI] 34.0-34.9, adult
CPT/HCPCS: 36415; 70450; 71045; 80053; 80307; 80320; 81001; 82140; 82550; 82962; 83735; 85027; 85610; 85730; 87040; 93005; 93010; 93306; 93880; G0378; G0480; J0461; J0610; J1650; J1815; J1956; J7030